=== PATIENT | female | born 1955 | race Caucasian/White ===

== ENCOUNTER → 2021-12-01 11:35 | Outpatient (CLI) | payer BC, SELFPAY ==
--- NOTE | ~2021-12-01 | MR_ITS ---
EXAMINATION: MR lumbar spine wo con DATE: 12/01/2021 12:33 INDICATION: Low back pain. Degenerative joint disease. TECHNIQUE: Magnetic resonance imaging (MRI) of the lumbar spine was performed without intravenous con trast. Sequences included sagittal T2-weighted FSE, sagittal T2-weighted FS FSE, sagittal T1-weighted FSE, and axial T2-weighted FSE. COMPARISON: None FINDINGS: There is 14 degrees dextroscoliosis of lumbar spine. There is 8 mm anterolisthesis of L4 on L5. There is mild chronic anterior wedging of T11 vertebral body. There is moderately decreased disc height at L2-L3 and severely decreased disc height from L3-L4 through L5-S1. The distal spinal cord signal intensity is normal. The conus medullaris is at L1. There are gallstones in the gallbladder. T he following disc levels are specifically discussed: L1-L2: The disc is bulging. There is severe bilateral facet joint osteoarthritis. There is mild bilat eral neural foraminal stenosis. There is no central canal stenosis. L2-L3: The disc is bulging. There is severe bilateral facet joint osteoarthritis. There is moderate b ilateral neural foraminal stenosis. There is mild central canal stenosis. L3-L4: The disc is bulging and has an annular fissure. There is severe bilateral facet joint osteoart hritis. There is moderate bilateral neural foraminal stenosis. There is moderate central canal stenos is. L4-L5: The disc is bulging. There is severe bilateral facet joint osteoarthritis. There is moderate b ilateral neural foraminal stenosis. There is mild central canal stenosis with posterior decompression . L5-S1: The disc is bulging and has an annular fissure. There is moderate bilateral facet joint osteoa rthritis. There is mild bilateral neural foraminal stenosis. There is mild central canal stenosis. IMPRESSION: 1. Severe lumbar spondylosis. 2. Lumbar dextroscoliosis. 3. Cholelithiasis. Reviewed, dictated and finalized at location A.
== END ==
DX: M47.817 Spondylosis without myelopathy or radiculopathy, lumbosacral region (principal); M48.07 Spinal stenosis, lumbosacral region; M41.9 Scoliosis, unspecified; K80.20 Calculus of gallbladder without cholecystitis without obstruction
CPT/HCPCS: 72148

== ENCOUNTER → 2022-01-30 16:52 | Outpatient (CLI) | payer BC, SELFPAY ==
--- NOTE | ~2022-01-30 | MR_ITS ---
EXAMINATION: MR lumbar spine wo con DATE: 01/30/2022 17:27 INDICATION: Lumbar radiculopathy. Foot drop. TECHNIQUE: Magnetic resonance imaging (MRI) of the lumbar spine was performed without intravenous con trast. Sequences included sagittal T2-weighted FSE, sagittal T2-weighted FS FSE, sagittal T1-weighted FSE, and axial T2-weighted FSE. COMPARISON: Lumbar spine MRI 12/01/2021 FINDINGS: There is 15 degrees levoscoliosis of lumbar spine. There is 8 mm anterolisthesis of L4 on L 5. There is mild chronic anterior wedging of T11 vertebral body. There is moderately decreased disc h eight at L2-L3 and severely decreased disc height at L3-L4, L4-L5, and L5-S1. The distal spinal cord signal intensity is normal. The conus medullaris is at L1. The following disc levels are specifically discussed: L1-L2: The disc is bulging. There is severe bilateral facet joint osteoarthritis. There is mild bilat eral neural foraminal stenosis. There is no central canal stenosis. L2-L3: The disc is bulging. There is severe bilateral facet joint osteoarthritis. There is moderate b ilateral neural foraminal stenosis. There is moderate central canal stenosis. L3-L4: The disc is bulging and has an annular fissure. There is severe bilateral facet joint osteoart hritis. There is moderate bilateral neural foraminal stenosis. There is severe central canal stenosis . L4-L5: The disc is bulging and has an annular fissure. There is severe bilateral facet joint osteoart hritis. There is moderate bilateral neural foraminal stenosis. There is mild central canal stenosis w ith posterior decompression. L5-S1: The disc is bulging and has an annular fissure. There is moderate bilateral facet joint osteoa rthritis. There is mild bilateral neural foraminal stenosis. There is mild central canal stenosis. IMPRESSION: 1. Severe lumbar spondylosis, stable from 12/01/2021. Reviewed, dictated and finalized at location A. [employer]
== END ==
PROVIDERS: PCP Family Medicine
DX: M21.379 Foot drop, unspecified foot (principal); M47.26 Other spondylosis with radiculopathy, lumbar region
CPT/HCPCS: 72148

== ENCOUNTER → 2022-12-15 08:05 | Outpatient (CLI) | payer BC, SELFPAY ==
--- NOTE | ~2022-12-15 | MR_ITS ---
EXAMINATION: MR cervical spine wo con DATE: 12/15/2022 09:24 INDICATION: Cervical myelopathy TECHNIQUE: Magnetic resonance imaging (MRI) of the cervical spine was performed without intravenous c ontrast. Sequences included sagittal T2-weighted FSE, sagittal T2-weighted FS FSE, sagittal T1-weight ed FSE, axial MERGE and axial T2-weighted FSE. COMPARISON: None FINDINGS: 1-2 mm anterolisthesis C4 on C5. Vertebral body heights are normal. Moderate disc height loss with m ild fibrovascular degenerative endplate changes at C5-C6. Bone marrow signal intensity is otherwise n ormal. Remaining disc heights are normal. Cord signal intensity is normal. Cervical soft tissues are unremarkable. The following disc levels are specifically discussed: C2-C3: The disc does not extend beyond the endplate margin. There is mild left uncovertebral joint os teoarthritis. There is mild right and severe left facet joint osteoarthritis. There is mild left neur al foraminal stenosis. There is no central canal stenosis. C3-C4: The disc does not extend beyond the endplate margin. There is mild left and moderate right unc overtebral joint osteoarthritis. There is mild left and severe right facet joint osteoarthritis. Ther e is mild left and moderate right neural foraminal stenosis. There is no central canal stenosis. C4-C5: The disc does not extend beyond the endplate margin. There is mild bilateral uncovertebral vasile nt osteoarthritis. There is severe bilateral facet joint osteoarthritis. There is moderate bilateral neural foraminal stenosis. There is no central canal stenosis. C5-C6: Disc is bulging. There is moderate to severe right and severe left uncovertebral joint osteoar thritis. There is mild bilateral facet joint osteoarthritis. There is mild to moderate bilateral neur al foraminal stenosis. There is mild central canal stenosis with indentation of the left ventral surf odalis of the cord. C6-C7: Annular fissure and central disc extrusion with disc material extending couple millimeter ceph alad and caudal to the level of the endplates. There is mild bilateral uncovertebral joint osteoarthr itis. There is mild bilateral facet joint osteoarthritis. There is no neural foraminal stenosis. Ther e is mild central canal stenosis. C7-T1: The disc does not extend beyond the endplate margin. There is no uncovertebral joint osteoarth ritis. There is mild right and moderate left facet joint osteoarthritis. There is mild bilateral neur al foraminal stenosis. There is no central canal stenosis. IMPRESSION: 1. Moderate cervical spondylosis. Reviewed, dictated and finalized at location A.
--- NOTE | ~2022-12-15 | MR_ITS ---
EXAMINATION: MR thoracic spine wo con DATE: 12/15/2022 09:24 INDICATION: Cervical myelopathy TECHNIQUE: Magnetic resonance imaging (MRI) of the thoracic spine was performed without intravenous c ontrast. Sagittal localizer T1-weighted FSE of the cervicothoracic spine was obtained. Thoracic spine sequences included sagittal T2-weighted FSE, sagittal T1-weighted SE, Sagittal T2-weighted FS FSE, a nd axial T2-weighted FSE. COMPARISON: Lumbar spine MR dated 01/30/2022 FINDINGS: Alignment is normal.Chronic minimal to mild anterior wedging of T7-T12. Remaining vertebral body heig hts are normal. Normal marrow signal.Mild disc height loss at T4-T5 and T8-T9 through T11-T12. There is normal spinal cord signal. The conus terminates at L1. The following disc levels are specifically discussed: T1-T2: Disc does not extend beyond the endplate margins. There is mild left facet osteoarthritis. The re is no neural foraminal stenosis. There is no central canal stenosis. T2-T3: Annular fissure and small central disc extrusion with disc material extending up to 4 mm cepha lad to the level of the inferior endplate of T2. There is moderate bilateral facet osteoarthritis. Th ere is mild bilateral neural foraminal stenosis. There is mild central canal stenosis. T3-T4: Disc does not extend beyond the endplate margins. There is severe bilateral facet osteoarthrit is. There is mild bilateral neural foraminal stenosis. There is mild central canal stenosis. T4-T5: Small bilateral subarticular zone disc protrusions. There is severe bilateral facet osteoarthr itis. There is mild right and moderate left neural foraminal stenosis. There is mild central canal st enosis. T5-T6: Disc is mildly bulging. There is severe bilateral facet osteoarthritis. There is mild bilatera l neural foraminal stenosis. There is negligible central canal stenosis. T6-T7: Small bilateral subarticular zone disc protrusions. There is moderate bilateral facet osteoart hritis. There is mild bilateral neural foraminal stenosis. There is mild central canal stenosis. T7-T8: Small bilateral subarticular zone disc protrusions. There is severe bilateral facet osteoarthr itis. There is mild to moderate right and moderate left neural foraminal stenosis. There is mild cent ral canal stenosis. T8-T9: Small left paracentral disc protrusion. There is mild bilateral facet osteoarthritis. There is no neural foraminal stenosis. There is mild central canal stenosis. T9-T10: Small right paracentral disc protrusion which indents the right ventral surface of the cord. There is mild bilateral facet osteoarthritis. There is mild right neural foraminal stenosis. There is mild central canal stenosis. T10-T11: Small left paracentral disc protrusion. There is mild bilateral facet osteoarthritis. There is mild right neural foraminal stenosis. There is mild central canal stenosis. T11-T12: Disc is mildly bulging. There is mild bilateral facet osteoarthritis. There is no neural for aminal stenosis. There is stable central canal stenosis. IMPRESSION: 1. Mild thoracic spondylosis. Reviewed, dictated and finalized at location A.
== END ==
DX: M43.04 Spondylolysis, thoracic region (principal); M43.02 Spondylolysis, cervical region; G95.9 Disease of spinal cord, unspecified
CPT/HCPCS: 72141; 72146